=== PATIENT | male | born 1965 | race Hispanic/Latino ===

== ENCOUNTER 2025-03-28 01:07 | Emergency (ER) | payer SELFPAY ==
[~2025-03-28] VITALS: Ht 167.6 cm; Wt 84.8 kg
[2025-03-28] MEDS ORDERED: CEPH500T PO (02:50)
--- NOTE | 2025-03-28 02:50 | ERN ---
ED Note History of Present Illness Stated Complaint: THORN TO RT FOOT Chief Complaint: FOOT INJURY/PAIN Time Seen by MD: 01:11 Time Seen by Midlevel: 01:12 Dictation: 60-year-old male who presents to the emergency department due to reported having sustained a small puncture wound to the plantar aspect of the right foot. He states that he was walking outside of his house when he stepped on a cactus. Patient states that this occurred yesterday. He states that the discomfort is primarily when he applies pressure on the affected area. There is no report of any fever or chills associated with this. Currently, he states that he is unable to recall his last tetanus shot. Upon initial evaluation, the patient presents in no acute distress. Allergies: Coded Allergies: No Known Allergies (Unverified Allergy, Unknown, 03/28/25) Emergency Care TAX ADVISOR: None Past Medical History Past Medical History: Diabetes-Type II Surgical History: None PSYCH History: no pertinent psych hx RN Note Reviewed/Agreed w/PFSH: Yes Review of System Dictation MS/Extremity: Right foot pain Initial Vital Sign VS Vital Signs Date Time Temp Pulse Resp B/P (MAP) Pulse Ox O2 Delivery O2 Flow Rate FiO2 03/28/25 01:09 97.3 97 20 143/73 99 Room Air Physical Exam Dictation General: awake, alert, NAD Head/Face: Normocephalic, atraumatic Eyes: PERRL, EOMI ENT: Oral mucosa moist Neck: Trachea midline, supple Cardiovascular: RRR, no edema Respiratory: Symmetrical, non-labored Abdomen: Soft, non-tender, non-distended, no guarding. Skin: Warm, dry, good turgor, no rash MS/Extremity: Pain and tenderness to the right foot along the plantar aspect. Neuro: COAx4, GCS 15, steady gait, Psych: Normal behavior, mood, and affect normal Results (Laboratory/Radiology) X-RAY Comment: Three-view x-ray of the right foot with no radiopaque foreign objects as interpreted by me. ED Course ED Course Orders Procedure Category Date Status Time Foot Comp 3+Vws Rt RAD 03/28/25 Taken 01:17 Ceftriaxone 1g Vial PHA 03/28/25 Complete (Rocephine 1g Inj) 01:30 Ketorolac 60mg/2ml PHA 03/28/25 Complete (Toradol 60mg/2ml) 01:30 Current Medications Medications (Trade) Dose Ordered Sig/[place] Route PRN Reason Start Time Stop Time Status Last Admin Dose Admin Ceftriaxone Sodium (ROCEphine 1G INJ) 1 gm ONCE ONCE IM 03/28/25 01:30 03/28/25 01:31 DC 03/28/25 01:38 Ketorolac Tromethamine (toRADol 60MG/ 2ML) 60 mg ONCE ONCE IM 03/28/25 01:30 03/28/25 01:31 DC 03/28/25 01:34 Vital Signs Date Time Temp Pulse Resp B/P (MAP) Pulse Ox O2 Delivery O2 Flow Rate FiO2 03/28/25 01:09 97.3 97 20 143/73 99 Room Air Medical Decision Making MDM MDM: Differential diagnosis: Puncture wound right foot, cellulitis right foot, abrasion and right foot. Rationale: Tests considered and ordered secondary to shared decision making include: Previous outside records reviewed: Old ER visits. Risk of complication and/or morbidity or mortality of patient management: None Medications-Per medication reconciliation Need for hospitalization: Patient does not meet criteria for hospitalization. Need for emergency major/minor surgery: No There are no social concerns with this patient. Prescription drug management Prescriptions will include symptomatic care Patient's prior external medical records from other ER visits were reviewed by me as indicated. Prior testing and results from previous visits were reviewed. Prior tests were taken into account with medical decision making and resource utilization, independent historian/historians were used to obtain complete medical history. I independently interpreted the test that were performed, results were reviewed by me and considered findings on radiology if ordered. Medical management and examination interpretation discussions were had by me with other qualified healthcare professionals as indicated for the patient's care. DX & DISP Disposition: Discharge Departure Impression: Primary Impression: Puncture wound of foot, right Condition: Stable Scripts Cephalexin (Cephalexin) 500 Mg Tablet 1 TAB PO TID for 7 Days, #21 TAB 0 Refills Prov: ELÍAS SERRA 03/28/25 Referrals: SELF,REFERRAL (PCP) Time of Disposition: 02:50 ELÍAS SERRA Mar 28, 2025 02:50
[2025-03-28 02:57] VITALS: BP 127/66; PULSE 78; RESP 15; TEMP 97.3; O2SAT 98
--- NOTE | 2025-03-28 02:58 | HMCIMG ---
EXAM: CR Right Foot, 3 views. CLINICAL HISTORY: Pain. COMPARISON: None provided. FINDINGS: No acute fracture or aggressive appearing osseous lesion. Tiny plantar and large posterior calcaneal enthesophytes. Joint spaces are within normal limits. The soft tissues are unremarkable. IMPRESSION: No acute bony abnormality is evident. /[place]
== END 2025-03-28 03:01 | disposition home or self-care (01) ==
LOC: EDH 01:07
DX: S91.331A Puncture wound without foreign body, right foot, initial encounter (principal); E11.9 Type 2 diabetes mellitus without complications; W22.8XXA Striking against or struck by other objects, initial encounter; Y93.89 Activity, other specified; Y92.89 Other specified places as the place of occurrence of the external cause; Y99.8 Other external cause status
CPT/HCPCS: 99284; 73630; 96372 ×2; J1885; J0696

== ENCOUNTER 2025-03-31 23:12 | Emergency (ER) | payer SELFPAY ==
[~2025-03-31] VITALS: Ht 170.2 cm; Wt 81.2 kg
[~2025-03-31 23:12] MED LIST: CEPH500T PO
[2025-03-31] MEDS ORDERED: SULF1TAB42 PO (23:28)
--- NOTE | 2025-03-31 23:28 | ERN ---
General Chief Complaint: Wound Check Stated Complaint: C/O PUNCTURE WOUND TO RIGHT FOOT Time Seen by MD: 23:16 Time Seen by Midlevel: 23:16 Source: patient History of Present Illness Initial Comments The patient is a 60-year-old male with a past medical history of two diabetes presenting to the emergency department for a wound evaluation. The patient repo rts having a puncture wound six days ago through his right great toe. He was seen in our emergency department and discharged home on cephalexin. He has noticed an improvement to the area but wanted a 2nd opinion given that he is diabetic. He specifically denies any fever, chills, or any other symptoms at this time. Allergies: Coded Allergies: No Known Allergies (Unverified Allergy, Unknown, 03/28/25) Home Meds Active Scripts Cephalexin (Cephalexin) 500 Mg Tablet, 1 TAB PO TID for 7 Days, #21 TAB 0 Refills Prov:ELÍAS SERRA 03/28/25 Past Medical History Past Medical History: Other Past Surgical History: Other ROS Dictation CONSTITUTIONAL: Negative except for HPI HEAD/FACE: Negative except for HPI EENT: Negative except for HPI RESPIRATORY: Negative except for HPI GASTROINTESTINAL/ABDOMINAL: Negative except for HPI GENITOURINARY: Negative except for HPI MUSCULOSKELETAL: Negative except for HPI INTEGUMENTARY: Negative except for HPI NEUROLOGICAL/PSYCH: Negative except for HPI HEMATOLOGIC/LYMPHATIC: Negative except for HPI All Systems Negative, Except as noted above. 13 point review of systems assessed and all negative except for above. Physical Exam Physical Exam Dictation Vital Signs reviewed General Appearance: Alert, oriented x 3, no acute distress, well developed, nourished. Head and Face: non-traumatic. Eyes: PERRL, pink conjunctivas, eyelid no trauma, anterior chamber with arcus senilis. Ears: Pinnas intact and no signs of trauma or erythema ear canals clear and no discharge TM no erythema Nose: No discharge, no bleeding. Oropharynx: Mouth normal, tongue pink, pharynx clear,no erythema, tonsils no exudates, no abscesses noted, mucous membrane moist Neck: Supple, non-tender, no thyromegaly, no masses, no JVD, no bruits Breast:Deferred Chest:No tenderness, no crepitus, no paradoxical movement, no retractions Lungs:Clear, well-ventilated, symmetric, no rales, no wheezing, no rhonchi, no stridor, good breath sounds bilaterally Heart: Regular rate, regular rhythm, no murmur, no gallops Vascular: no peripheral edema, Abdomen: Soft, positive bowel sounds, nondistended, no guarding, nontender, no rebound, no masses no hepatomegaly, no splenomegaly, no Gruber's sign, no hernias. Rectal: Deferred Genital: Deferred Neurological: Normal speech, motor function intact, sensory function intact Musculoskeletal: Neck nontender, full range of motion, back nontender, full range of motion, Extremities: nontender, full range of motion Skin: Color pink, dry, no turgor, no rash, no lacerations, no abrasions, no contusions. Lymphatic: Deferred MDM MDM: The patient is a 60-year-old male with a past medical history of two diabetes presenting to the emergency department for a wound evaluation. The patient reports having a puncture wound six days ago through his right great toe. He was seen in our emergency department and discharged home on cephalexin. He has noticed an improvement to the area but wanted a 2nd opinion given that he is diabetic. He specifically denies any fever, chills, or any other symptoms at this time. On physical examination there is a well-healing puncture wound to the plantar aspect of the right great toe, there is no surrounding erythema, induration, or drainable abscess. Area appears to be healing well. However, in the dorsal aspect there is some remaining erythema. The patient states the erythema to this area was significantly worse any has significantly improved over the last six days however he is out of antibiotics. Patient was given1 g of ceftriaxone in the emergency department and was discharged home on Bactrim Differential diagnosis: Cellulitis, puncture wound, abscess There are no social concerns with this patient. Prescription drug management Prescriptions will include: Bactrim Medical management and examination interpretation discussions were had by me with other qualified healthcare professionals as indicated for the patient's care. ED Course Orders Procedure Category Date Status Time Ceftriaxone 1g Vial PHA 03/31/25 Transmitted (Rocephine 1g Inj) 23:30 Vital Signs Date Time Temp Pulse Resp B/P (MAP) Pulse Ox O2 Delivery O2 Flow Rate FiO2 03/31/25 23:14 98.4 78 20 118/71 98 Room Air DX & DISP Disposition: Discharge Departure Impression: Primary Impression: Puncture wound of foot, right Condition: Stable Scripts Sulfamethoxazole/Trimethoprim (Bactrim Ds Tablet) 800 Mg-160 Mg Tablet 1 TAB PO BID for 5 Days, #10 TAB 0 Refills Prov: PIETRO MAI 03/31/25 Referrals: SELF,REFERRAL (PCP) I have reviewed the case, and I agree with, Diagnosis and Plan I performed the substantive portion of the visit. I have reviewed and personally made and approve the management plan that is documented in the note by myself or the ROB. I acknowledge for responsibility for the patient's management plan. PIETRO MAI Mar 31, 2025 23:28
[2025-03-31 23:43] VITALS: BP 120/71; PULSE 81; RESP 18; TEMP 98.3; O2SAT 98
== END 2025-04-01 00:08 | disposition home or self-care (01) ==
LOC: EDH 23:12
DX: S91.331A Puncture wound without foreign body, right foot, initial encounter (principal); E11.9 Type 2 diabetes mellitus without complications; X58.XXXA Exposure to other specified factors, initial encounter; Y93.89 Activity, other specified; Y92.89 Other specified places as the place of occurrence of the external cause; Y99.8 Other external cause status
CPT/HCPCS: 99283; 96372; J0696